=== PATIENT | male | born 1975 | race Caucasian/White ===

== ENCOUNTER 2017-06-16 12:13 | Outpatient (CLI) | payer OTHER ==
--- NOTE | 2017-06-16 15:38 | MRI ---
CERVICAL SPINE MRI NONCONTRAST: Date: 06-16-17 Clinical history: Cervical radiculopathy. FINDINGS: The cervical spinal alignment is maintained. Vertebral body heights are preserved. Patient motion di storts detail and limits assessment of the spinal cord. No significant central canal stenosis at the C1-2 level. C2-3: No high grade central canal or neural foraminal stenosis. C3-4: Mild disc osteophyte complex effaces the ventral thecal sac without high grade central canal o r neural foraminal stenosis. C4-5: No significant compromise of the central canal or neural foramina. C5-6: No significant degree of compromise of the central canal or neural foramina. C6-7: There is a mild disc bulge without high grade central canal or foraminal stenosis. C7-T1: No significant compromise of the central canal or neural foramina. IMPRESSION: Mild degenerative changes of the cervical spine without high grade compromise of the central canal o r neural foramina. The evaluation is limited by the degree of persistent patient motion throughout t he exam. POS: X[place]
== END 2017-06-16 12:14 | disposition home or self-care (01) ==
LOC: SCSMRI 12:13
PROVIDERS: ATTEND Family Medicine
DX: M47.22 Other spondylosis with radiculopathy, cervical region (principal)
CPT/HCPCS: 72141

== ENCOUNTER 2018-12-08 09:20 | Outpatient (CLI) | payer OTHER ==
--- NOTE | 2018-12-08 11:41 | CT ---
CT OF ABDOMEN AND PELVIS WITHOUT AND WITH CONTRAST: COMPARISON: None. HISTORY: Midline abdominal pain for 2 months. TECHNIQUE: Multiple contiguous axial images were obtained in a CT of the abdomen and pelvis without and with IV contrast. Oral contrast was administered. Coronal reformats were performed. FINDINGS: The liver, gallbladder, kidneys, adrenal glands, spleen, and pancreas are unremarkable. No calcifica tions are seen in either kidney, either ureter, or within the urinary bladder. The large and small bowel are unremarkable. The appendix is not seen and may have been removed. No abdominal or pelvic lymphadenopathy are present. The osseous structures, visualized inferior thorax, and abdominal wall soft tissues are unremarkable. IMPRESSION: No evidence of acute intraabdominal/pelvic abnormality. POS: H
== END 2018-12-08 09:21 | disposition home or self-care (01) ==
LOC: SCSCT 09:20
PROVIDERS: ATTEND Family Medicine
DX: N20.0 Calculus of kidney (principal); R10.30 Lower abdominal pain, unspecified
CPT/HCPCS: 74178

== ENCOUNTER 2021-05-21 09:03 | Emergency (ER) | payer OTHER ==
[~2021-05-21 09:03] MED LIST: Iopamidol-370 76% 500 ML 1 ML ONE
[2021-05-21 10:02] LABS: Hemoglobin 14.5 g/dL (14.0-18.0); Mean Corpuscular Hemoglobin 29.6 pg (27.0-31.0); Mean Corpuscular Volume 87.1 fL (78.0-98.0); Mean Platelet Volume 9.4 fL (7.4-10.4); Platelet Count 221 thou/uL (130-400); RBC Distribution Width 12.3 % (11.5-14.5); Red Blood Cell (RBC) Count 4.88 mill/uL (4.70-6.10); White Blood Cell (WBC) Count 9.2 thou/uL (4.8-10.8)
[2021-05-21 10:21] LABS: ALT (SGPT) 34 U/L (8-55); AST (SGOT) 34 U/L (5-34); Albumin 3.7 g/dL (3.5-5.0); Alkaline Phosphatase 65 U/L (40-110); Anion Gap 16 mmol/L (10-20); BUN (Urea Nitrogen) 10 mg/dL (8.9-20.6); Calc. Creatinine Clearance 0 mL/min (70-130); Calcium 9.1 mg/dL (7.8-10.44); Carbon Dioxide 24 mmol/L (22-29); Chloride 104 mmol/L (98-107); Globulin 2.9 g/dL (2.4-3.5); Glucose 197 mg/dL (70-105); Potassium 4.6 mmol/L (3.5-5.1); Protein, Total 6.6 g/dL (6.0-8.3); Sodium 139 mmol/L (136-145)
[2021-05-21 11:00] LABS: Band 4 % (5-11); Lymphocytes 10 % (21-51); MDiff Complete? YES; Metamyelocyte 1 % (0-0); Monocytes 9 % (0-10); Myelocyte 1 % (0-0); Neutrophil 74 % (42-75); Platelet Morphology Comment Appears Adequate; RBC Morphology Normal; Reactive Lymphocytes 1 % (0-10)
[2021-05-21] MEDS ORDERED: Ibuprofen 800 MG TAB ONE (11:47)
== END 2021-05-21 12:32 | disposition home or self-care (01) ==
LOC: ERS 09:03
DX: U07.1 COVID-19 (principal); R07.9 Chest pain, unspecified; Z79.899 Other long term (current) drug therapy
CPT/HCPCS: 36415; 71045; 71275; 80053; 84484; 85025; 85379; 93005; Q9967

== ENCOUNTER 2022-08-18 13:40 | Outpatient (CLI) | payer BC | END 2022-08-18 13:41 | disposition home or self-care (01) | LOC: CTENTCT 13:40 | PROVIDERS: ATTEND Student in an Organized Health Care Education/Training Program | DX: J32.9 Chronic sinusitis, unspecified (principal) | CPT/HCPCS: 70486 ==